=== PATIENT | male | born 1975 | race Caucasian/White ===

== ENCOUNTER 2019-11-21 22:35 | Emergency (ER) | payer BC ==
[~2019-11-21] VITALS: Ht 185.4 cm; Wt 86.4 kg
[2019-11-21 22:40] VITALS: Ht 185.4 cm; Wt 86.4 kg
[2019-11-21] MEDS ORDERED: BP MED (22:43)
[2019-11-21] MEDS ORDERED: ANXIETY MED (22:43)
[2019-11-21] MEDS ORDERED: HYDROCODON-ACE1 EA10 PO (23:05)
[2019-11-21] MEDS ORDERED: SILVADENE20 GM TP (23:34)
[2019-11-22 00:20] VITALS: BP 160/98
== END 2019-11-22 00:20 | disposition home or self-care (01) ==
LOC: D.ER 22:35
DX: T23.252A Burn of second degree of left palm, initial encounter (principal); W39.XXXA Discharge of firework, initial encounter; Y93.9 Activity, unspecified; Y92.9 Unspecified place or not applicable